=== PATIENT | female | born 1975 | race Caucasian/White ===

== ENCOUNTER → 2018-03-09 09:34 | Outpatient (CLI) | payer MEDICARE, BC, MEDICAID, SELFPAY ==
--- NOTE | 2018-03-09 | DI.CT.S_ITS ---
PROCEDURE: CT CHEST WO/W CON COMPARISON: None. INDICATIONS: chest pains with shortness of breath TECHNIQUE: Axial 5 mm thin sections through the chest were initially obtained without intravenous contrast and thereafter during the mixed arterial/venous venous phase of post contrast imaging. Coronal and sagittal reformatt imaging from source axial data was then performed. FINDINGS: Within the lung parenchyma there is no evidence of mass or pneumonia. No bronchitis or bronchiectasis is seen. Alveolitis is not suspected on the imaging series with deep inspiratory volume. There is alveolar and bronchiolar vascular crowding identified on the imaging showing reduced inspiratory volume. Mild lung base atelectasis is seen posteriorly, expected considering reduced inspiratory volume and large body habitus. No mediastinal or hilar adenopathy is seen. Within the visualized upper abdomen the solid and hollow organs appear normal. Incidental mode is made of a simple appearing exophytic right posterior renal cortical cyst, measuring up to 2.9 cm in maximal dimension. IMPRESSION: Source of current chest pain and shortness of breath is not seen. No underlying pneumonia or neoplasm is suspected. No chronic lung disease is found. Large body habitus and there is expected bronchovascular and alveolar crowding with reduced inspiratory volume. No evidence of pulmonary embolus or mediastinal/hilar adenopathy. Dictated by: Shashank Juarez M.D. on 03/09/2018 at 11:53 Approved by: Shashank Juarez M.D. on 03/09/2018 at 11:58
== END ==
PROVIDERS: PCP Family Medicine; Visit Provider Family Medicine
DX: R07.9 Chest pain, unspecified (principal); R06.02 Shortness of breath
CPT/HCPCS: 71270; Q9967

== ENCOUNTER → 2018-11-30 09:23 | Outpatient (CLI) | payer MEDICARE, BC, OTHER, MEDICAID, SELFPAY ==
--- NOTE | 2018-11-30 | DI.MRI.S_ITS ---
PROCEDURE: MR SHOULDER LT WO CON INDICATIONS: LEFT SHOULDER PAIN TECHNIQUE: Noncontrast oblique coronal T2 fast spin echo with fat saturation, oblique sagittal T1 spin echo and T2 fast spin echo with fat saturation, axial T1 spin echo and T2 fast spin echo with fat saturation through the shoulder. COMPARISON: None. FINDINGS: Image quality: Excellent. Rotator cuff: Tendinosis and moderate grade articular and bursal surface partial-thickness tear involving distal supraspinatus and infraspinatus is seen with focal full-thickness perforation involving anterior to mid fibers of the distal supraspinatus at its insertion on the humeral head and 8mm medial retraction of torn tendon fibers. Tendinosis and low-grade intrasubstance partial-thickness tear involving distal subscapularis is seen. Sagittal images demonstrate mild to moderate supraspinatus muscle atrophy. Bones and bursae: No bone marrow contusions or fractures. Mild acromioclavicular joint or glenohumeral joint osteoarthritic changes are seen. Trace amount of joint effusion or subacromial subdeltoid bursal fluid is seen. Capsule and soft tissues: In the absence of intra-articular contrast, the labrum and glenohumeral ligaments appear intact. Tendinosis and low to moderate grade partial-thickness tear involving proximal intra-articular portion of long head biceps tendon is seen. The rotator interval appears normal, without fibrosis. The coracohumeral ligament is normal in thickness. IMPRESSION: 1. Tendinosis and moderate grade articular and bursal surface partial-thickness tear involving distal supraspinatus and infraspinatus with a focal full-thickness perforation involving most anterior fibers of the distal supraspinatus at its insertion the humeral head and minimal 8mm retraction of torn tendon fibers medially. Tendinosis and low-grade partial-thickness involving distal subscapularis. Mild to moderate supraspinatus muscle atrophy. 2. No definite focal labral tear. Mild acromioclavicular joint and glenohumeral joint osteoarthritis. 3. Tendinosis and low-grade intrasubstance partial-thickness tear involving proximal intra-articular portion of long head biceps tendon. Dictated by: Cachorro Morrow M.D. on 11/30/2018 at 13:48 Approved by: Cachorro Morrow M.D. on 11/30/2018 at 13:56
== END ==
PROVIDERS: PCP Family Medicine; Visit Provider Family Medicine
DX: M75.102 Unspecified rotator cuff tear or rupture of left shoulder, not specified as traumatic (principal); M25.512 Pain in left shoulder
CPT/HCPCS: 73221

== ENCOUNTER → 2019-04-09 11:41 | Outpatient (CLI) | payer MEDICARE, BC, OTHER, MEDICAID, SELFPAY ==
--- NOTE | 2019-04-09 | DI.US.S_ITS ---
PROCEDURE: US PELVIC COMPLETE INDICATIONS: Abnormal uterine and vaginal bleeding, unspecified TECHNIQUE: Real-time scanning was performed of the pelvic organs, with image documentation. Additional endovaginal scanning was necessary due to incomplete visualization of the adnexal and endometrial structures by transabdominal scanning. COMPARISON: None. FINDINGS: Transabdominal scanning: Limited scanning through the kidneys shows no hydronephrosis. No pathologic free abdominal or pelvic fluid. Endovaginal scanning: Uterus: Uterus is normal in size at 7.9 x 3.8 x 4.0 cm. The endometrium measures 3.0 mm in combined thickness. Ovaries: 20 mm simple right ovarian cyst; otherwise the ovaries are normal bilaterally. IMPRESSION: No source for vaginal bleeding identified. Dictated by: Paul LOPEZ Interpreted: Deepti Greenberg MD on 04/09/2019 at 13:13 Approved by: Deepti Greenberg MD, PhD on 04/09/2019 at 13:57
== END ==
PROVIDERS: Family Provider Family Medicine; PCP Family Medicine; Visit Provider Family Medicine
DX: N93.9 Abnormal uterine and vaginal bleeding, unspecified (principal)
CPT/HCPCS: 76830; 76856

== ENCOUNTER → 2019-10-23 14:15 | Outpatient (CLI) | payer MEDICARE, BC, OTHER, MEDICAID, SELFPAY ==
--- NOTE | 2019-10-23 | DI.US.S_ITS ---
PROCEDURE: US THYROID INDICATIONS: THYROMEGALY ROUTINE SCREENING TECHNIQUE: Real-time scanning was performed of the thyroid gland, with image documentation. COMPARISON: None. FINDINGS: Right: Normal size and echotexture. Left: Normal size and echotexture. Isthmus: The isthmus is normal in size. IMPRESSION: Normal size and echotexture through the thyroid gland bilaterally. No sign of goiter. No abnormal thyroid enlargement is found. Dictated by: Shashank Juarez M.D. on 10/23/2019 at 15:40 Approved by: Shashank Juarez M.D. on 10/23/2019 at 15:41
--- NOTE | 2019-10-23 | DI.MG.S_ITS ---
BILATERAL DIGITAL SCREENING MAMMOGRAM 3D/2D WITH CAD: 10/23/2019 CLINICAL: Routine screening. Comparison is made to exam dated: 07/28/2017 [facility]. There are scattered fibroglandular elements in both breasts. Current study was also evaluated with a Computer Aided Detection (CAD) system. There is a focal asymmetry in the left breast at 1 o'clock posterior depth. No other significant masses, calcifications, or other findings are seen in either breast. IMPRESSION: INCOMPLETE: NEEDS ADDITIONAL IMAGING EVALUATION The focal asymmetry in the left breast may represent a lymph node and is indeterminate. Additional views with possible ultrasound are recommended. This exam was interpreted at Station ID: [id number]. NOTE: For mammograms, a report in lay terms will be sent to the patient. Approximately 15% of breast malignancies will not be visualized mammographically. In the management of a palpable breast mass, a negative mammogram must not discourage biopsy of a clinically suspicious lesion. Electronically Signed By: Yolanda Zuniga M.D. lk/:10/23/2019 15:42:05 letter sent: Additional Imaging Needed ACR BI-RADS Category 0: Incomplete [id number]
== END ==
PROVIDERS: Family Provider Family Medicine; PCP Family Medicine; Referring Provider Family Medicine; Visit Provider Family Medicine
DX: Z12.31 Encounter for screening mammogram for malignant neoplasm of breast (principal); E01.0 Iodine-deficiency related diffuse (endemic) goiter
CPT/HCPCS: 76536; 77063; 77067

== ENCOUNTER → 2020-02-20 14:22 | Outpatient (CLI) | payer MEDICARE, MEDICAID, SELFPAY ==
--- NOTE | 2020-02-20 | DI.US.S_ITS ---
LIMITED ULTRASOUND OF LEFT BREAST: 02/20/2020 CLINICAL: Patient returns today to evaluate a density in the left breast. Comparison is made to exams dated: 02/20/2020 mammogram, 10/23/2019 mammogram, and 07/28/2017 mammogram - [facility]. Color flow and real-time ultrasound of the left breast were performed. Rivero scale images of the real-time examination were reviewed. There is a benign 0.6 cm normal lymph node with a circumscribed margin in the left breast at 1 o'clock posterior depth. This normal lymph node displays fatty hilum. This correlates with mammography findings. IMPRESSION: BENIGN There is no sonographic evidence of malignancy. The 0.6 cm normal lymph node in the left breast is consistent with a lymph node and is benign. A 1 year screening mammogram is recommended. Exam findings were conveyed to the patient. This exam was interpreted at Station ID: [id number]. Electronically Signed By: Uday Petersen M.D. slc/:02/20/2020 16:42:50 letter sent: Normal Exam Ultrasound BI-RADS: 2 Benign
--- NOTE | 2020-02-20 | DI.MG.S_ITS ---
UNILATERAL LEFT DIGITAL DIAGNOSTIC MAMMOGRAM 3D/2D WITH ADDITIONAL VIEWS: 02/20/2020 CLINICAL: Additional evaluation requested from prior study. Comparison is made to exams dated: 10/23/2019 mammogram and 07/28/2017 mammogram - [facility]. There are scattered fibroglandular elements in left breast. There is a 0.6 cm focal asymmetry in the left breast at 1 o'clock posterior depth. No other significant masses or calcifications are seen in the breast. IMPRESSION: INCOMPLETE: NEEDS ADDITIONAL IMAGING EVALUATION The 0.6 cm focal asymmetry in the left breast resembles a lymph node and is indeterminate. A targeted ultrasound is recommended and will immediately follow. This exam was interpreted at Station ID: [id number]. NOTE: For mammograms, a report in lay terms will be sent to the patient. Approximately 15% of breast malignancies will not be visualized mammographically. In the management of a palpable breast mass, a negative mammogram must not discourage biopsy of a clinically suspicious lesion. Electronically Signed By: Uday Petersen M.D. slc/:02/20/2020 15:41:17 ACR BI-RADS Category 0: Incomplete [id number]
--- NOTE | 2020-02-20 | DI.RAD.S_ITS ---
PROCEDURE: XR CHEST 2V INDICATIONS: wheezing since Covid in August TECHNIQUE: 2 views of the chest were acquired. COMPARISON: None. FINDINGS: Surgical changes and devices: None. Lungs and pleura: Lungs are clear. No pleural effusions or pneumothorax. Mediastinum: Mediastinal contours are normal. Heart size is normal. Bones and chest wall: No suspicious bony abnormalities. Soft tissues appear unremarkable. IMPRESSION: No acute cardiopulmonary findings. Dictated by: Yolanda Zuniga M.D. on 02/20/2020 at 15:42 Approved by: Yolanda Zuniga M.D. on 02/20/2020 at 15:42
--- NOTE | 2020-02-20 14:28 | DI.RAD.S_ITS ---
PROCEDURE: XR LUMBAR SPINE MIN 4V INDICATIONS: LBP TECHNIQUE: 4 views of the lumbar spine were acquired. COMPARISON: None. FINDINGS: Bones: 5 nonrib-bearing vertebrae are present. There is normal bony alignment. No vertebral body compression fractures. No suspicious bony lesions. Mild joint space narrowing and sclerosis is present at L5-S1. Facet sclerosis is present from L4-S1. Soft tissues: Overlying bowel gas pattern is normal. No suspicious soft tissue calcifications. Oblique images: No pars defects. IMPRESSION: 1. Mild degenerative change. 2. No spondylolisthesis or spondylolysis. Dictated by: Yolanda Zuniga M.D. on 02/20/2020 at 16:18 Approved by: Yolanda Zuniga M.D. on 02/20/2020 at 16:19
== END ==
PROVIDERS: Family Provider Family Medicine; PCP Family Medicine; Referring Provider Family Medicine; Visit Provider Family Medicine
DX: R92.8 Other abnormal and inconclusive findings on diagnostic imaging of breast (principal); R06.2 Wheezing; M51.26 Other intervertebral disc displacement, lumbar region; M47.816 Spondylosis without myelopathy or radiculopathy, lumbar region
CPT/HCPCS: 71046; 72110; 76642; 77065; G0279

== ENCOUNTER → 2020-10-05 17:02 | Outpatient (CLI) | payer MEDICARE, OTHER, MEDICAID, SELFPAY | PROVIDERS: Family Provider Family Medicine; PCP Family Medicine; Visit Provider Family Medicine | DX: R39.15 Urgency of urination (principal) | CPT/HCPCS: 87086 ==

== ENCOUNTER → 2020-10-08 13:10 | Outpatient (CLI) | payer MEDICARE, MEDICAID, SELFPAY ==
[2020-10-11 04:07] LABS: Chlamydia trachomatis NAA Negative (Negative); Neisseria gonorrhoeae NAA Negative (Negative)
== END ==
PROVIDERS: Family Provider Family Medicine; PCP Family Medicine; Visit Provider Family Medicine
DX: B37.3 Candidiasis of vulva and vagina (principal); N39.41 Urge incontinence; G80.1 Spastic diplegic cerebral palsy; N39.0 Urinary tract infection, site not specified
CPT/HCPCS: 87070; 87205; 87210; 87491; 87591

== ENCOUNTER → 2021-01-28 13:55 | Outpatient (CLI) | payer MEDICARE, MEDICAID, SELFPAY ==
--- NOTE | 2021-01-28 | DI.RAD.S_ITS ---
PROCEDURE: XR LUMBAR SPINE 2-3V INDICATIONS: low back pain TECHNIQUE: 2 views of the lumbar spine were acquired. COMPARISON: [facility], , XR LUMBAR SPINE MIN 4V, 02/20/2020, 14:28. FINDINGS: Bones: 5 [id number] vertebrae are present. There is mild levocurvature of the lower lumbar spine. This may be due to patient positioning. No acute vertebral body compression fractures. No suspicious bony lesions. Multilevel lumbar spondylosis with degenerative endplate changes and endplate osteophyte formation. Moderate multilevel facet arthropathy most severe in the mid and lower lumbar spine. Stable mild disc space loss at L5-S1. Soft tissues: Overlying bowel gas pattern is normal. No suspicious soft tissue calcifications. IMPRESSION: Lumbar spine without acute osseous abnormalities. Stable appearance of multilevel lumbar spondylosis. Dictated by: Yony Moreno M.D. on 01/28/2021 at 15:55 Approved by: Yony Moreno M.D. on 01/28/2021 at 15:57
--- NOTE | 2021-01-28 | DI.RAD.S_ITS ---
PROCEDURE: XR HAND RT MIN 3V INDICATIONS: Arthritis of hand TECHNIQUE: Three views of the hand(s) acquired. COMPARISON: None. FINDINGS: Bones: No fractures or dislocations. Moderate subluxation of the 2nd PIP and DIP joints. 1st IP joint is held in extension. Slight flexion at the 3rd DIP joint. Carpal bones are normally aligned. No suspicious bony lesions. Soft tissues: Scattered soft tissue calcifications and swelling around the 2nd IP joints, and around the 3rd and 4th proximal phalanges. IMPRESSION: 1. Subluxation and soft tissue calcifications suggests connective tissue arthropathy, , rheumatoid arthropathy, less likely inflammatory arthropathy. Dictated by: Clemencia Simpson M.D. on 01/28/2021 at 16:42 Approved by: Clemencia Simpson M.D. on 01/28/2021 at 16:46
== END ==
PROVIDERS: Family Provider Family Medicine; PCP Family Medicine; Referring Provider Family Medicine; Visit Provider Family Medicine
DX: M54.5 Low back pain (principal); M13.849 Other specified arthritis, unspecified hand
CPT/HCPCS: 72100; 73130

== ENCOUNTER 2022-02-22 10:54 | Emergency (ER) | payer MEDICARE, MEDICAID, SELFPAY ==
[2022-02-22 10:58] VITALS: BP 117/74; PULSE 85; RESP 19; TEMP 36.6; O2SAT 100; BMI 26.4
--- NOTE | 2022-02-22 11:11 | DI.CT.S_ITS ---
PROCEDURE: CT HEAD/BRAIN WO CON INDICATIONS: fall/head injury TECHNIQUE: Noncontrast 4.5 mm thick angled axial sections acquired from the foramen magnum to the vertex, with coronal and sagittal reformats. For radiation dose reduction, the following was used: automated exposure control, adjustment of mA and/or kV according to patient size. COMPARISON: [facility], CT, CT CERVICAL SPINE WO CON, 02/22/2022, 11:20. FINDINGS: Image quality: Excellent. CSF spaces: Basal cisterns are patent. No extra-axial fluid collections. Ventricles are normal in size and shape. Brain: No midline shift. No intracranial masses or hemorrhage. Rivero-white matter interface is normal. Skull and face: There is a benign-appearing cystic lesion involving the outer table of the left posterior calvarium, as on series 3, image 24 and on series 4, image 31 that measures up to 11 mm. There is fat density seen within this lesion. The calvarium is otherwise unremarkable. No displaced calvarial fracture is seen. Sinuses: Visualized sinuses and mastoids are clear. IMPRESSION: No acute intracranial hemorrhage is seen. No acute intracranial process is seen. Benign appearing left posterior calvarial lesion noted. Dictated by: Jamel Adams M.D. on 02/22/2022 at 10:29 Approved by: Jamel Adams M.D. on 02/22/2022 at 10:32
--- NOTE | 2022-02-22 11:19 | DI.CT.S_ITS ---
PROCEDURE: CT CERVICAL SPINE WO CON INDICATIONS: fall/head injury TECHNIQUE: Noncontrast 3 mm thick sections acquired from the skull base to the T4 level. Sagittal and coronal reformats were then constructed. For radiation dose reduction, the following was used: automated exposure control, adjustment of mA and/or kV according to patient size. COMPARISON: None. FINDINGS: Image quality: Excellent. Bones: No fractures or dislocations. Visualized superior ribs are intact. Soft tissues: Prevertebral soft tissues are normal in thickness. No paravertebral hematomas. No apical pneumothoraces. IMPRESSION: No CT evidence of acute traumatic cervical spine injury.4 Dictated by: Adryan Logan M.D. on 02/22/2022 at 11:25 Approved by: Adryan Logan M.D. on 02/22/2022 at 11:26
--- NOTE | 2022-02-22 14:29 | ED.HEATRA ---
HPI - Head Injury <Colleen Avila PA-C - Last Filed: 02/22/22 14:36> General Chief complaint: Head Injury Stated complaint: GLF w/head contusion on Mon. Headaches, nausea Time Seen by Provider: 02/22/22 13:06 Source: patient Mode of arrival: Ambulatory History of Present Illness HPI Narrative: 46-year-old female with past medical history cerebral palsy, chronic continuous use of opioids, anxiety and depression, GERD, rheumatoid arthritis presents to the ED status post a head injury sustained 6 days prior to arrival. Patient stated that she suffered a mechanical fall when walking with her walker 6 days ago, hit her head. Patient denies loss of consciousness. Patient states that since then she is had a headache, nausea. Patient denies fever, chills, chest pain, shortness of breath, vomiting, dizziness, vision changes, syncope. Patient called her PCP today, who directed her to the ED to rule out intracranial bleeds. Related Data Home Medications Medication Instructions Recorded Confirmed albuterol sulfate 90 mcg/actuation inhalation 06/08/20 10/23/20 aerosol inhaler alprazolam 0.5 mg tablet mg PO BID PRN anxiety 06/08/20 10/23/20 fluticasone propionate 110 inhalation 06/08/20 10/23/20 mcg/actuation HFA aerosol inhaler calcipotriene 0.005 % topical cream 1 applic topical BID 10/14/20 10/23/20 meloxicam 15 mg tablet 15 mg PO DAILY 10/14/20 10/23/20 propranolol 10 mg tablet 10 mg PO BID 10/23/20 10/23/20 spironolactone 50 mg tablet 50 mg PO DAILY 10/23/20 10/23/20 tofacitinib 11 mg tablet,extended 11 mg PO DAILY 10/23/20 10/23/20 release 24 hr (Xeljanz XR) venlafaxine 150 mg 150 mg PO DAILY 10/23/20 10/23/20 capsule,extended release 24 hr Previous Rx's Medication Instructions Recorded hydromorphone 4 mg tablet 4 mg PO Q6H PRN Severe pain #112 10/23/20 tabs mirabegron 25 mg tablet,extended 25 mg PO DAILY #90 tabs 10/26/20 release 24 hr (Myrbetriq) Allergies Allergy/AdvReac Type Severity Reaction Status Date / Time Penicillins [PENICILLINS] Allergy Unknown Verified 10/08/20 12:07 Review of Systems <Colleen Avila PA-C - Last Filed: 02/22/22 14:36> Review of Systems ROS Unobtainable: All systems reviewed & are unremarkable except as noted in HPI and below Constitutional Constitutional: Denies chills, Denies fatigue, Denies fever(s), Denies frequent falls, Reports headache(s), Denies lethargy and Denies weakness Eyes Eyes: Denies change in vision, Denies eye discharge, Denies irritation and Denies loss of vision ENT Ears, Nose, Mouth, and Throat: Denies change in voice, Denies dizziness, Reports headache(s), Denies neck pain, Denies sore throat and Denies throat swelling Cardiovascular Cardiovascular: Denies chest pain, Denies irregular heart rhythm, Denies lightheadedness, Denies palpitations, Denies dyspnea, Denies dyspnea on exertion and Denies orthopnea Respiratory Respiratory: Denies cough, Denies dyspnea, Denies dyspnea on exertion and Denies wheezing Gastrointestinal Gastrointestinal: Denies abdominal pain, Denies change in bowel habits, Denies diarrhea, Reports nausea and Denies vomiting Genitourinary Genitourinary: Denies hematuria, Denies flank pain, Denies urinary incontinence and Denies urinary urgency Musculoskeletal Musculoskeletal: Denies back pain, Denies muscle weakness, Denies neck pain, Denies numbness and Denies tingling Integumentary/Breasts Skin/Breast: Denies pruritus, Denies erythema, Denies rash and Denies wounds Neurologic Neurologic: Denies behavioral changes, Denies confusion, Denies dizziness, Denies frequent falls, Reports headache(s), Denies loss of vision, Denies numbness, Denies tingling and Denies weakness Psychiatric Psychiatric: Denies anxiety, Denies behavioral changes, Denies confusion, Denies depression, Denies homicidal ideation and Denies suicidal ideation Endocrine Endocrine: Denies fatigue, Denies flushing and Denies palpitations Hematologic/Lymphatic Hematologic/Lymphatic: Denies easy bruising Allergic/Immunologic Allergic/Immunologic: Denies urticaria, Denies throat swelling and Denies wheezing Patient History <Colleen Avila PA-C - Last Filed: 02/22/22 14:36> Medical History Cerebral palsy Depression (~1979) Facet arthropathy, lumbar Herniated nucleus pulposus, lumbar History of developmental delay (~1974) Psoriasis (~1999) Rheumatoid arthritis (~1999) Spastic diplegia Family History Father Stroke Mother Bladder cancer Social History Smoking Status: Never smoker Smoking Status: Never smoker alcohol intake frequency: holidays/special occasions only Substance Use Type: marijuana Exam <Colleen Avila PA-C - Last Filed: 02/22/22 14:36> Narrative Exam Narrative: Const General:?cooperative, healthy appearing and comfortable HENMT Head:?normal to inspection Ears:?hearing grossly normal bilaterally Nose:?external nose normal Face and sinus:?normal facial exam and sinuses nontender Mouth:?oral mucosae normal Throat:?posterior oropharynx normal Eyes General:?appearance normal, both eyes and all related structures Neck Neck:?normal visual inspection and no lymphadenopathy noted Resp Effort & Inspection:?normal respiratory effort Auscultation:?clear to auscultation bilaterally Cardio Rate:?regular rate Rhythm:?regular rhythm Neuro General:?patient alert, patient awake and patient oriented x3; PERRLA; CN 1 through 12 intact bilaterally. Gait per baseline. Initial Vital Signs Initial Vital Signs: Vital Signs Temperature 97.8 F 02/22/22 10:58 Pulse Rate 85 02/22/22 10:58 Respiratory Rate 19 02/22/22 10:58 Blood Pressure 117/74 02/22/22 10:58 Pulse Oximetry 100 02/22/22 10:58 Oxygen Delivery Method 02/22/22 10:58 <Alysha Luke DO - Last Filed: 02/25/22 14:40> Initial Vital Signs Initial Vital Signs: Vital Signs Temperature 97.8 F 02/22/22 10:58 Pulse Rate 85 02/22/22 10:58 Respiratory Rate 19 02/22/22 10:58 Blood Pressure 117/74 02/22/22 10:58 Pulse Oximetry 100 02/22/22 10:58 Oxygen Delivery Method 02/22/22 10:58 Course <Colleen Avila PA-C - Last Filed: 02/22/22 14:36> Orders Ordered: ED Orders 02/22/22 11:11 CT head/brain wo con Stat 02/22/22 11:19 CT cervical spine wo con Stat Vital Signs Vital signs: Vital Signs - 8 hr 02/22/22 10:58 Temperature 97.8 F Pulse Rate 85 Respiratory Rate 19 Blood Pressure 117/74 Pulse Oximetry 100 Oxygen Delivery Method Room Air <Alysha Luke DO - Last Filed: 02/25/22 14:40> Orders Ordered: ED Orders 02/22/22 11:11 CT head/brain wo con Stat 02/22/22 11:19 CT cervical spine wo con Stat Vital Signs Vital signs: Vital Signs - 8 hr 02/22/22 10:58 Temperature 97.8 F Pulse Rate 85 Respiratory Rate 19 Blood Pressure 117/74 Pulse Oximetry 100 Oxygen Delivery Method Room Air MDM - Head Injury <Colleen Avila PA-C - Last Filed: 02/22/22 14:36> Imaging Data CT scan - head: Radiologist's Impression: PROCEDURE:? CT HEAD/BRAIN WO CON ? INDICATIONS:? fall/head injury ? TECHNIQUE:? Noncontrast 4.5 mm thick angled axial sections acquired from the foramen magnum to the vertex, with coronal and sagittal reformats.? For radiation dose reduction, the following was used:? automated exposure control, adjustment of mA and/or kV according to patient size.? ? COMPARISON:? [facility], CT, CT CERVICAL SPINE WO CON, 02/22/2022, 11:20. ? FINDINGS:? Image quality:? Excellent.? ? CSF spaces:? Basal cisterns are patent.? No extra-axial fluid collections.? Ventricles are normal in size and shape.? ? Brain:? No midline shift.? No intracranial masses or hemorrhage.? Rivero-white matter interface is normal.? ? Skull and face:? There is a benign-appearing cystic lesion involving the outer table of the left posterior calvarium, as on series 3, image 24 and on series 4, image 31 that measures up to 11 mm.? There is fat density seen within this lesion.? The calvarium is otherwise unremarkable.? No displaced calvarial fracture is seen. ? Sinuses:? Visualized sinuses and mastoids are clear.? IMPRESSION:? No acute intracranial hemorrhage is seen.? ? No acute intracranial process is seen.? ? Benign appearing left posterior calvarial lesion noted.? ? Dictated by: Jamel Adams M.D. on 02/22/2022 at 10:29 ? ? Approved by: Jamel Adams M.D. on 02/22/2022 at 10:32 ? CT - cervical spine: Radiologist's Impression: PROCEDURE:? CT CERVICAL SPINE WO CON ? INDICATIONS:? fall/head injury ? TECHNIQUE:? Noncontrast 3 mm thick sections acquired from the skull base to the T4 level.? Sagittal and coronal reformats were then constructed.? For radiation dose reduction, the following was used:? automated exposure control, adjustment of mA and/or kV according to patient size.? ? COMPARISON:? None. ? FINDINGS:? Image quality:? Excellent.? ? Bones:? No fractures or dislocations.? Visualized superior ribs are intact.? ? Soft tissues:? Prevertebral soft tissues are normal in thickness.? No paravertebral hematomas.? No apical pneumothoraces.? ? ? IMPRESSION:? No CT evidence of acute traumatic cervical spine injury.4 ? Dictated by: Adryan Logan M.D. on 02/22/2022 at 11:25 ? ? Approved by: Adryan Logan M.D. on 02/22/2022 at 11:26 ? Extremity x-ray #1: Radiologist's Impression: PROCEDURE:? XR MANDIBLE MIN 4V ? INDICATIONS:? JAW PAIN ? TECHNIQUE:? 4 views of the mandible were acquired.? ? COMPARISON:? None. ? FINDINGS:? ? Bones:? No fractures or dislocations.? No suspicious bony lesions.? ? Soft tissues:? Visualized sinuses appear clear.? No suspicious soft tissue densities.? ? IMPRESSION:? No definite radiographic abnormality. If pain persists with conservative management, consider cross sectional imaging such as CT or MRI for further assessment. ? ? Dictated by: Paul LOPEZ Interpreted: Charity Root MD on 02/22/2022 at 11:53 ? Transcribed by: NANCY on 02/22/2022 at 11:53? ? Approved by: Charity Root M.D. on 02/22/2022 at 12:04 ? Extremity x-ray #2: Radiologist's Impression: PROCEDURE:? XR KNEE RT 3V ? INDICATIONS:? TENDONITIS ? TECHNIQUE:? 3 views of the knee were acquired.? ? COMPARISON:? [facility], CR, KNEE 3V RIGHT, 08/02/2017, 16:18. ? FINDINGS:? ? Bones:? No fractures or dislocations.? No suspicious bony lesions.? Mild tricompartmental knee joint space narrowing with tricompartmental periarticular osteophyte formation. ? Soft tissues:? Small joint effusion.? No suspicious soft tissue calcifications.? ? IMPRESSION:? Mild tricompartmental knee joint degeneration. ? ? Dictated by: Paul Beckett RRA Interpreted: Charity Root MD on 02/22/2022 at 11:53 ? Transcribed by: NANCY on 02/22/2022 at 11:54? ? Approved by: Charity Root M.D. on 02/22/2022 at 12:04 ? MDM Narrative Medical decision making narrative: 46-year-old female with past medical history cerebral palsy, chronic continuous use of opioids, anxiety and depression, GERD, rheumatoid arthritis presents to the ED status post a head injury sustained 6 days prior to arrival. Concern for intracranial bleed versus fracture/dislocation versus concussion versus other. CT head, CT C-spine obtained with no acute findings. Patient's symptoms likely due to a concussion. Counseled patient on concussion symptoms. ED return precautions were discussed with patient. Patient verbalized understanding. Patient agrees to follow-up with her PCP. Discharge Plan Departure Patient Disposition: Home Clinical Impression: Concussion Instructions: Concussion Activity Restrictions/Additional Instructions: You were evaluated in the ED today for a head injury. Your CT head and CT C-spine were normal. Your symptoms are likely due to a concussion, which is a brain bruise. It is common after a concussion to have headaches, nausea, occasional vomiting, sleepiness, fatigue, depression, agitation for several days after the injury. Symptoms can last between days 2 months depending on the person. It is important that you follow-up with your PCP from her on to monitor your symptoms to resolution. Return to the ED if you have worsening symptoms, you are uncontrollably vomiting. Prescriptions: No Action Myrbetriq 25 mg tablet extended release 24 hr 25 mg PO DAILY Qty: 90 1RF Rx Instructions: Patient should discontinue Detrol if taking Mirabegron meloxicam 15 mg tablet 15 mg PO DAILY calcipotriene 0.005 % cream 1 applic topical BID Rx Instructions: rub in gently and completely hydromorphone 4 mg tablet 4 mg PO Q6H PRN (Reason: Severe pain) Qty: 112 0RF Rx Instructions: Tapering. Must last at least 28 days. spironolactone 50 mg tablet 50 mg PO DAILY propranolol 10 mg tablet 10 mg PO BID venlafaxine 150 mg capsule,extended release 24hr 150 mg PO DAILY Xeljanz XR 11 mg tablet extended release 24 hr 11 mg PO DAILY albuterol sulfate 90 mcg/actuation HFA aerosol inhaler inhalation Flovent HFA 110 mcg/actuation HFA aerosol inhaler inhalation alprazolam 0.5 mg tablet PO BID PRN (Reason: anxiety) Referrals: Oliver Rodriguez MD [Primary Care Provider] - Visit Report Forms: Patient Portal/API <Alysha Luke DO - Last Filed: 02/25/22 14:40> Cosign ED Attending Emiature Attestation: I was immediately available in the department for consultation. Documentation has been reviewed.
== END 2022-02-22 16:07 | disposition home or self-care (01) ==
PROVIDERS: Emergency Provider Student in an Organized Health Care Education/Training Program; Family Provider Family Medicine; PCP Family Medicine
DX: S06.0X0A Concussion without loss of consciousness, initial encounter (principal); W18.30XA Fall on same level, unspecified, initial encounter; M76.51 Patellar tendinitis, right knee; M05.9 Rheumatoid arthritis with rheumatoid factor, unspecified; R68.84 Jaw pain; M17.11 Unilateral primary osteoarthritis, right knee
CPT/HCPCS: 70110; 70450; 72125; 73562; 99283

== ENCOUNTER → 2022-02-22 11:08 | Outpatient (CLI) | payer MEDICARE, MEDICAID, SELFPAY ==
--- NOTE | 2022-02-22 11:12 | DI.RAD.S_ITS ---
PROCEDURE: XR MANDIBLE MIN 4V INDICATIONS: JAW PAIN TECHNIQUE: 4 views of the mandible were acquired. COMPARISON: None. FINDINGS: Bones: No fractures or dislocations. No suspicious bony lesions. Soft tissues: Visualized sinuses appear clear. No suspicious soft tissue densities. IMPRESSION: No definite radiographic abnormality. If pain persists with conservative management, consider cross sectional imaging such as CT or MRI for further assessment. Dictated by: Paul LOPEZ Interpreted: Charity Root MD on 02/22/2022 at 11:53 Transcribed by: NANCY on 02/22/2022 at 11:53 Approved by: Charity Root M.D. on 02/22/2022 at 12:04
--- NOTE | 2022-02-22 11:12 | DI.RAD.S_ITS ---
PROCEDURE: XR KNEE RT 3V INDICATIONS: TENDONITIS TECHNIQUE: 3 views of the knee were acquired. COMPARISON: [facility], , KNEE 3V RIGHT, 08/02/2017, 16:18. FINDINGS: Bones: No fractures or dislocations. No suspicious bony lesions. Mild tricompartmental knee joint space narrowing with tricompartmental periarticular osteophyte formation. Soft tissues: Small joint effusion. No suspicious soft tissue calcifications. IMPRESSION: Mild tricompartmental knee joint degeneration. Dictated by: Paul LOPEZ Interpreted: Charity Root MD on 02/22/2022 at 11:53 Transcribed by: NANCY on 02/22/2022 at 11:54 Approved by: Charity Root M.D. on 02/22/2022 at 12:04
== END ==
PROVIDERS: Family Provider Family Medicine; PCP Family Medicine; Referring Provider Family Medicine; Visit Provider Family Medicine
DX: M17.11 Unilateral primary osteoarthritis, right knee (principal); M76.51 Patellar tendinitis, right knee; M05.9 Rheumatoid arthritis with rheumatoid factor, unspecified; R68.84 Jaw pain
CPT/HCPCS: 70110; 73562

== ENCOUNTER → 2022-06-27 13:00 | Outpatient (CLI) | payer MEDICARE, MEDICAID, SELFPAY ==
--- NOTE | 2022-06-27 | DI.MG.S_ITS ---
BILATERAL DIGITAL SCREENING MAMMOGRAM 3D/2D WITH CAD: 06/27/2022 CLINICAL: Routine screening. Comparison is made to exams dated: 10/23/2019 mammogram, 07/28/2017 mammogram, and 02/20/2020 mammogram - [facility]. There are scattered areas of fibroglandular density in both breasts (category b / 25%-50% glandular tissue). Current study was also evaluated with a Computer Aided Detection (CAD) system. There is an asymmetry in the left breast middle depth superior region seen on the mediolateral oblique view only. This is more prominent. Benign calcifications in both breasts. No other significant masses, calcifications, or other findings are seen in either breast. IMPRESSION: INCOMPLETE: NEEDS ADDITIONAL IMAGING EVALUATION The asymmetry in the left breast is indeterminate. Additional views with possible ultrasound are recommended. Based on the Tyrer Cuzick model (a risk assessment model) the patient's lifetime risk is 7.2% and her 10 year risk is 1.4%. According to the ACR, ACS, and NCCN guidelines, an annual breast MRI exam along with mammogram is recommended if the patient's lifetime risk is 20% or greater. This exam was interpreted at Station ID: [id number]. NOTE: For mammograms, a report in lay terms will be sent to the patient. Approximately 15% of breast malignancies will not be visualized mammographically. In the management of a palpable breast mass, a negative mammogram must not discourage biopsy of a clinically suspicious lesion. Electronically Signed By: Uday Petersen M.D. [facility] [place]/:06/27/2022 13:43:21 letter sent: Additional Imaging Needed ACR BI-RADS Category 0: Incomplete [id number]
== END ==
PROVIDERS: Family Provider Family Medicine; PCP Family Medicine; Referring Provider Family Medicine; Visit Provider Family Medicine
DX: Z12.31 Encounter for screening mammogram for malignant neoplasm of breast (principal)
CPT/HCPCS: 77063; 77067

== ENCOUNTER → 2022-06-27 13:17 | Outpatient (CLI) | payer MEDICARE, MEDICAID, SELFPAY ==
--- NOTE | 2022-06-27 13:27 | DI.MRI.S_ITS ---
PROCEDURE: MR LUMBAR SPINE WO CON INDICATIONS: Radiculopathy, lumbosacral region TECHNIQUE: Noncontrast sagittal T1 spin echo and T2 fast echo, sagittal STIR, and T2 fast spin echo through the lumbar spine. In cases with scoliosis, additional coronal T2 fast spin echo may be performed. COMPARISON: [facility] ([place]), CR, XR LUMBAR SPINE 2-3V, 04/04/2022, 14:06. FINDINGS: Image quality: Excellent. Alignment and Curvature: Trace anterolisthesis of L4 on L5. Bone Marrow: Marrow is of normal overall signal. There is increased T1-T2 signal at L4 suspicious for hemangioma. Similar appearance is also noted at T12. No acute vertebral body compression fractures. Spinal Cord: Conus medullaris terminates at the L1 level. Visualized cord demonstrates normal signal and size. Paraspinous Soft Tissues: No paravertebral masses. Simple right renal cyst is present. Discs: Mild desiccation is present L4-5. L1-L2: No disc bulge, spinal stenosis or foraminal narrowing. L2-L3: Minimal disc bulge without spinal stenosis. Minimal left foraminal narrowing. Minimal epidural lipomatosis. L3-L4: Minimal disc bulge without spinal stenosis. Minimal left foraminal narrowing. Mild facet hypertrophy. L4-L5: Mild disc bulge with large superimposed posterior central protrusion causing severe spinal stenosis and canal compression. Dysi-gy-vbnjcpsy left and minimal right foraminal narrowing with facet and ligamentum flavum hypertrophy. L5-S1: Mild disc bulge without spinal stenosis. Moderate bilateral foraminal narrowing with facet and ligamentum flavum hypertrophy. IMPRESSION: Disc bulge with large superimposed protrusion at L4-5 causing severe spinal stenosis and canal compression. Multilevel foraminal narrowing most severe at L5-S1 secondary to facet arthropathy. Dictated by: Charity Root M.D. on 06/27/2022 at 20:41 Approved by: Charity Root M.D. on 06/27/2022 at 21:02
== END ==
PROVIDERS: Family Provider Family Medicine; PCP Family Medicine; Referring Provider Family Medicine; Visit Provider Family Medicine
DX: M51.16 Intervertebral disc disorders with radiculopathy, lumbar region (principal); M51.17 Intervertebral disc disorders with radiculopathy, lumbosacral region; M47.26 Other spondylosis with radiculopathy, lumbar region; M47.27 Other spondylosis with radiculopathy, lumbosacral region; M48.07 Spinal stenosis, lumbosacral region; M48.061 Spinal stenosis, lumbar region without neurogenic claudication
CPT/HCPCS: 72148

== ENCOUNTER → 2022-08-16 11:57 | Outpatient (CLI) | payer MEDICARE, MEDICAID, SELFPAY ==
--- NOTE | 2022-08-16 | DI.MG.S_ITS ---
UNILATERAL LEFT DIGITAL DIAGNOSTIC MAMMOGRAM 3D/2D WITH ADDITIONAL VIEWS: 08/16/2022 CLINICAL: Additional evaluation requested from prior study. Comparison is made to exams dated: 06/27/2022 mammogram, 02/20/2020 mammogram, 10/23/2019 mammogram, and 07/28/2017 mammogram - [facility]. There are scattered areas of fibroglandular density in the left breast (category b / 25%-50% glandular tissue). The asymmetry in the left breast middle depth superior region seen on the mediolateral oblique view only is not seen in additional views. No other significant masses or calcifications are seen in the breast. IMPRESSION: BENIGN The left breast asymmetry seen on the screening mammogram likely respresents superimposed fibroglandular tissue and is benign. There is no mammographic evidence of malignancy. Return to annual mammogram screening schedule is recommended. Based on the Tyrer Cuzick model (a risk assessment model) the patient's lifetime risk is 7.2% and her 10 year risk is 1.4%. According to the ACR, ACS, and NCCN guidelines, an annual breast MRI exam along with mammogram is recommended if the patient's lifetime risk is 20% or greater. This exam was interpreted at Station ID: [id number]. NOTE: For mammograms, a report in lay terms will be sent to the patient. Approximately 15% of breast malignancies will not be visualized mammographically. In the management of a palpable breast mass, a negative mammogram must not discourage biopsy of a clinically suspicious lesion. Electronically Signed By: Yolanda Zuniga M.D. lk/:08/16/2022 12:28:03 letter sent: Normal Exam ACR BI-RADS Category 2: Benign Finding(s) 3342F
== END ==
PROVIDERS: Family Provider Family Medicine; PCP Family Medicine; Referring Provider Family Medicine; Visit Provider Family Medicine
DX: R92.8 Other abnormal and inconclusive findings on diagnostic imaging of breast (principal)
CPT/HCPCS: 77065; G0279

== ENCOUNTER → 2022-10-18 15:47 | Outpatient (CLI) | payer MEDICARE, MEDICAID, SELFPAY | PROVIDERS: Family Provider Family Medicine; PCP Family Medicine; Visit Provider Nurse Practitioner Adult Health | DX: N89.8 Other specified noninflammatory disorders of vagina (principal) | CPT/HCPCS: 87798; 87801 ==

== ENCOUNTER → 2022-10-19 09:09 | Outpatient (CLI) | payer MEDICARE, MEDICAID, SELFPAY | PROVIDERS: Family Provider Family Medicine; PCP Family Medicine; Visit Provider Nurse Practitioner Adult Health | DX: N39.41 Urge incontinence (principal) | CPT/HCPCS: 87086 ==

== ENCOUNTER → 2022-12-27 09:15 | Outpatient (CLI) | payer MEDICARE, MEDICAID, SELFPAY ==
--- NOTE | 2022-12-27 | DI.MRI.S_ITS ---
PROCEDURE: MR SHOULDER LT WO CON INDICATIONS: LEFT SHOULDER PAIN TECHNIQUE: Noncontrast oblique coronal T2 fast spin echo with fat saturation, oblique sagittal T1 spin echo and T2 fast spin echo with fat saturation, axial T1 spin echo and T2 fast spin echo with fat saturation through the shoulder. COMPARISON: [facility], MR, MR SHOULDER LT WO CON, 11/30/2018, 9:57. FINDINGS: Image quality: Excellent. Rotator cuff: There is full-thickness tear of the distal supraspinatus tendon at the humeral attachment. There is moderate infraspinatus and subscapularis tendinosis without high-grade tendon tear. Sagittal images demonstrate no muscle atrophy. Bones and bursae: No bone marrow contusions or fractures. Moderate acromioclavicular and glenohumeral joint degeneration. The acromion demonstrates conventional anatomy, without an os acromiale. No pathologic subacromial-subdeltoid or subcoracoid bursal fluid is present. Capsule and soft tissues: There is degenerative fraying of the superior, anterior inferior labrum. There is moderate tendinosis of the long head of the biceps tendon without tendon rupture or dislocation. The rotator interval appears normal, without fibrosis. The coracohumeral ligament is normal in thickness. IMPRESSION: 1. Full-thickness tear of the distal supraspinatus tendon. 2. Moderate infraspinatus and subscapularis tendinosis without high-grade tendon tear. 3. Moderate tendinosis of the long head of the biceps tendon. 4. Moderate acromioclavicular and glenohumeral arthrosis. 4. Degenerative labral fraying. Dictated by: Jorge Her M.D. on 12/27/2022 at 11:38 Approved by: Jorge Her M.D. on 12/27/2022 at 11:51
--- NOTE | 2022-12-27 09:16 | DI.US.S_ITS ---
PROCEDURE: US PELVIC COMPLETE INDICATIONS: s/p endometrial ablation, new onset vaginal bleeding, assess TECHNIQUE: Real-time scanning was performed of the pelvic organs, with image documentation. Additional endovaginal scanning was necessary due to incomplete visualization of the adnexal and endometrial structures by transabdominal scanning. COMPARISON: [facility], , US PELVIC COMPLETE, 04/09/2019, 12:01. FINDINGS: Uterus: Endometrium is not well seen measuring about 4 mm in thickness. Uterus measures 8 x 3.5 x 4.7 cm, anteverted positioning. 1.3 x 1.5 x 1.0 cm region in the cervix, possibly a cystic cluster with calcifications, probably stable from prior imaging. Attention on follow-up. Ovaries: Right ovary is not seen. Enlarged left ovary measuring 57 cc. Multiloculated cystic region measures 5.2 x 4.5 x 4.7 cm. Color and spectral flows are seen. Other: No pathologic free abdominal or pelvic fluid. IMPRESSION: Endometrial appears somewhat ill-defined, measuring a thickness of about 4 mm. Multiloculated cystic region of the left ovary, measuring up to 5.2 x 4.7 cm. Consider further evaluation with MRI versus short interval follow-up ultrasound. Dictated by: Nader Taylor M.D. on 12/27/2022 at 13:15 Approved by: Nader Taylor M.D. on 12/27/2022 at 13:22
== END ==
PROVIDERS: Family Provider Family Medicine; PCP Family Medicine; Referring Provider Family Medicine; Visit Provider Family Medicine
DX: D39.12 Neoplasm of uncertain behavior of left ovary (principal); N92.6 Irregular menstruation, unspecified; M75.122 Complete rotator cuff tear or rupture of left shoulder, not specified as traumatic; M19.012 Primary osteoarthritis, left shoulder; M67.814 Other specified disorders of tendon, left shoulder; M54.2 Cervicalgia
CPT/HCPCS: 73221; 76830; 76856

== ENCOUNTER → 2022-12-27 09:18 | Outpatient (CLI) | payer MEDICARE, MEDICAID, SELFPAY ==
--- NOTE | 2022-12-27 | DI.MRI.S_ITS ---
PROCEDURE: MR CERVICAL SPINE WO CON INDICATIONS: Cervical disc disorder with radiculopathy, unspecified cervi TECHNIQUE: Noncontrast sagittal T1 spin echo and T2 fast spin echo, sagittal STIR, foraminal oblique sagittal T2 fast spin echo, and axial gradient echo or T2 fast spin echo through the cervical spine. COMPARISON: [facility], CT, CT CERVICAL SPINE WO CON, 02/22/2022, 11:20. [facility] ([place]), CR, XR CERVICAL SPINE 2V OR 3V, 11/03/2022, 13:57. FINDINGS: Image quality: This examination is limited by involuntary motion artifact. Alignment and Curvature: There is normal bony alignment. Bone Marrow: Marrow demonstrates normal overall signal. Spinal Cord: Visualized spinal cord has normal size and signal. No cerebellar tonsillar herniation. Paraspinous Soft Tissues: No paravertebral masses. Prevertebral soft tissues are normal in thickness. Focal degenerative change is seen involving the C1-C2 interface anteriorly. Moderate soft tissue pannus can be seen posterior to the dens at this level. C2-C3: No significant abnormality is seen. C3-C4: The disc height is well-preserved. Loss of disc signal is seen at this level. A mild degree of generalized disc osteophyte complex is seen. There is moderate right-sided and nkzh-fe-uphbwriw left-sided facet hypertrophy. There is moderate right-sided and hrvh-bj-yqotrzri left-sided neural foraminal narrowing. No central canal narrowing is seen. C4-C5: The disc height is well-preserved. Loss of disc signal is seen at this level. A mild degree of generalized disc osteophyte complex is seen. Moderate facet joint hypertrophy is seen. There is moderate left-sided and mild right-sided neural foraminal narrowing. No significant central canal narrowing is seen. C5-C6: The disc height is well-preserved. Loss of disc signal is seen at this level. A mild degree of generalized disc osteophyte complex is seen. Moderate facet joint hypertrophy is seen. There is at least moderate right-sided and bvep-kb-olugtqmq left-sided neural foraminal narrowing. No significant central canal narrowing is seen. C6-C7: The disc height is well-preserved. Loss of disc signal is seen at this level. A mild degree of generalized disc osteophyte complex is seen. Mild facet joint hypertrophy is seen. No significant neural foraminal or central canal narrowing can be seen. C7-T1: No significant abnormality is seen. IMPRESSION: Focal degenerative change can be seen involving the C1-C2 interface anteriorly. Mild soft tissue pannus can be seen posterior to the dens. Given the CT appearance, please consider remote trauma versus developmental anomaly. Differential diagnosis also includes rheumatoid arthritis. Dictated by: Jamel Adams M.D. on 12/27/2022 at 18:41 Approved by: Jamel Adams M.D. on 12/27/2022 at 18:46
== END ==
PROVIDERS: Family Provider Family Medicine; PCP Family Medicine; Referring Provider Family Medicine; Visit Provider Family Medicine
DX: M47.22 Other spondylosis with radiculopathy, cervical region; M75.122 Complete rotator cuff tear or rupture of left shoulder, not specified as traumatic; M19.012 Primary osteoarthritis, left shoulder; M67.814 Other specified disorders of tendon, left shoulder; M54.2 Cervicalgia; D39.12 Neoplasm of uncertain behavior of left ovary; N92.6 Irregular menstruation, unspecified
CPT/HCPCS: 72141; 73221; 76830; 76856

== ENCOUNTER → 2023-01-24 10:33 | Outpatient (CLI) | payer MEDICARE, MEDICAID, SELFPAY ==
--- NOTE | 2023-01-24 | DI.MRI.S_ITS ---
PROCEDURE: MR PELVIS WO/W CON INDICATIONS: Other intra-abdominal and pelvic swelling, mass and lump TECHNIQUE: Coronal HASTE, sagittal breath-hold T2 FSE; axial T1 FSE with and without fat saturation through the pelvis. Optional long- and short-axis uterine nonbreath-hold T2 FSE through the uterus. Sagittal or axial dynamic VIBE during administration of contrast. Post-contrast axial or coronal VIBE/2-D FLASH with fat saturation from the iliac crests to the symphysis. Optional diffusion weighted imaging and ADC may be performed. COMPARISON: [facility], US, US PELVIC COMPLETE, 12/27/2022, 9:24. FINDINGS: Image quality: Good. Uterus: Uterus is anteverted and normal in size. Uterus measures 7.1 cm. Endometrium is normal in thickness measuring 0.3 cm. Junctional zone is normal in thickness at 12 mm or less. Multiple nabothian cysts. Adnexa: Several small left ovarian follicles. A larger follicle or simple cyst measuring 1.5 cm, (4/20). No suspicious enhancement. No restricted diffusion. No intrinsic T1 hyperintense signal. Right ovary is not enlarged. Small right ovarian follicle. Urinary system: Bladder wall is normal in thickness. Distal ureters are non distended. Urethra appears normal in morphology. Nodes and vessels: No pelvic or inguinal adenopathy by size criteria. Iliac vessels are normal in size. Bowel and peritoneum: No pathologic free pelvic fluid. Inferior colon and small bowel loops are normal in caliber. Soft tissues: Probable small fat containing left inguinal hernia. No findings of pelvic floor incompetence in the absence of provocation. Bones: Marrow demonstrates normal overall signal. IMPRESSION: No significant ovarian cyst. No mass or suspicious enhancement. No uterine adenomyosis demonstrated. No free fluid. Dictated by: Uday Petersen M.D. on 01/24/2023 at 17:26 Approved by: Uday Petersen M.D. on 01/24/2023 at 17:34
== END ==
PROVIDERS: Family Provider Family Medicine; PCP Family Medicine; Referring Provider Family Medicine; Visit Provider Family Medicine
DX: R19.09 Other intra-abdominal and pelvic swelling, mass and lump (principal)
CPT/HCPCS: 72197; A9579

== ENCOUNTER → 2023-08-14 11:14 | Outpatient (CLI) | payer MEDICARE, MEDICAID, SELFPAY ==
[2023-08-15 14:38] LABS: Candida species Negative (Negative); Gardnerella vaginalis Negative (Negative); Trichomoas vaginalis Negative (Negative)
== END ==
PROVIDERS: Family Provider Family Medicine; PCP Family Medicine; Visit Provider Obstetrics & Gynecology
DX: N89.8 Other specified noninflammatory disorders of vagina (principal)
CPT/HCPCS: 87480; 87510; 87660

== ENCOUNTER → 2023-08-14 11:48 | Outpatient (CLI) | payer MEDICARE, MEDICAID, SELFPAY ==
--- NOTE | 2023-08-14 | DI.RAD.S_ITS ---
PROCEDURE: XR FOOT RT MIN 3V INDICATIONS: RT FT PAIN TECHNIQUE: 3 views of the foot were acquired. COMPARISON: [facility] ([place]), CR, XR FOOT LT MIN 3V, 09/09/2021, 9:21. [facility] ([place]), CR, XR FOOT RT MIN 3V, 04/30/2021, 10:08. FINDINGS: Bones: Toes are again curled and difficult to evaluate. No fracture or dislocation can be identified. No suspicious osseous lesions seen. Plantar calcaneal spur again noted. Soft tissues: No radiographically evident soft tissue swelling noted. Patient's radiodense patchy sock somewhat limits evaluation of the soft tissues. IMPRESSION: Somewhat limited evaluation of the toes due to curled positioning No acute bony abnormality. Dictated by: Butch Parham M.D. on 08/14/2023 at 13:15 Approved by: Butch Parham M.D. on 08/14/2023 at 13:19
--- NOTE | 2023-08-14 | DI.RAD.S_ITS ---
PROCEDURE: XR CERVICAL SPINE 4V OR 5V INDICATIONS: NECK PAIN TECHNIQUE: 5 views of the cervical spine were acquired. COMPARISON: [facility] ([place]), CR, XR CERVICAL SPINE 2V OR 3V, 11/03/2022, 13:57. FINDINGS: Bones: No fractures or dislocations to the T1 level. No suspicious bony lesions. There is normal range of motion between flexion and extension, with preserved normal bony alignment. Soft tissues: Prevertebral soft tissues are normal in thickness. IMPRESSION: Unremarkable cervical spine radiographs without evidence of instability Approved by: Xavier Benitez M.D. on 08/14/2023 at 19:04
== END ==
PROVIDERS: Family Provider Family Medicine; PCP Family Medicine; Referring Provider Specialist/Technologist Athletic Trainer; Visit Provider Specialist/Technologist Athletic Trainer
DX: M54.2 Cervicalgia (principal); R20.2 Paresthesia of skin; M79.671 Pain in right foot; M77.31 Calcaneal spur, right foot; N89.8 Other specified noninflammatory disorders of vagina
CPT/HCPCS: 72050; 73630; 87480; 87510; 87660

== ENCOUNTER → 2023-09-08 11:15 | Outpatient (CLI) | payer MEDICARE, MEDICAID, SELFPAY ==
--- NOTE | 2023-09-08 11:18 | DI.CT.S_ITS ---
PROCEDURE: CT CERVIAL SPINE W CON INDICATIONS: SEROPOSITIVE RA/Ankylosing spondylitis of c spine TECHNIQUE: After the administration of intravenous iodinated contrast, 3 mm thick sections acquired through the levels of interest. Sagittal and coronal reformats were then constructed. For radiation dose reduction, the following was used: automated exposure control. COMPARISON: [facility], CR, XR CERVICAL SPINE 4V OR 5V, 08/14/2023, 12:04. [facility], MR, MR CERVICAL SPINE WO CON, 12/27/2022, 10:05. FINDINGS: Image quality: This examination is somewhat limited by quantum mottle artifact. Bones: Focal degenerative change is seen involving the C1-C2 interface anteriorly. Milder degenerative changes are seen elsewhere. The disc heights are relatively well preserved. Mild endplate osteophytes can be seen anteriorly at C4-C5, C5-C6, and C6-C7. Mild scattered degenerative changes can be seen involving the facets. Soft tissues: There is a mild degree of soft tissue pannus seen posterior to the dens. No significant surrounding soft tissue abnormality can be seen. The visualized lungs appear clear. No abnormal enhancement can be seen. IMPRESSION: A mild degree of soft tissue pannus can be seen posterior to the dens, which is consistent with the given clinical history of rheumatoid arthritis. Focal degenerative change can be seen involving the C1-C2 interface anteriorly, with milder degenerative changes seen elsewhere. Dictated by: Jamel Adams M.D. on 09/08/2023 at 11:53 Approved by: Jamel Adams M.D. on 09/08/2023 at 11:55
== END ==
PROVIDERS: Family Provider Family Medicine; PCP Family Medicine; Referring Provider Specialist/Technologist Athletic Trainer; Visit Provider Specialist/Technologist Athletic Trainer
DX: M05.9 Rheumatoid arthritis with rheumatoid factor, unspecified; M54.2 Cervicalgia; M47.812 Spondylosis without myelopathy or radiculopathy, cervical region
CPT/HCPCS: 72126; Q9967

== ENCOUNTER → 2023-09-27 11:33 | Outpatient (CLI) | payer MEDICARE, MEDICAID, SELFPAY ==
[2023-09-28 18:16] LABS: Candida species Negative (Negative); Gardnerella vaginalis Negative (Negative); Trichomoas vaginalis Negative (Negative)
== END ==
PROVIDERS: Family Provider Family Medicine; PCP Family Medicine; Visit Provider Obstetrics & Gynecology
DX: N89.8 Other specified noninflammatory disorders of vagina (principal); B37.31 Acute candidiasis of vulva and vagina
CPT/HCPCS: 87086; 87480; 87510; 87660

== ENCOUNTER → 2024-02-07 13:24 | Outpatient (CLI) | payer MEDICARE, MEDICAID, SELFPAY ==
--- NOTE | 2024-02-07 13:26 | DI.MG.S_ITS ---
BILATERAL DIGITAL SCREENING MAMMOGRAM 3D/2D WITH CAD: 02/07/2024 CLINICAL: Routine screening. Comparison is made to exams dated: 06/27/2022 mammogram, 10/23/2019 mammogram, and 07/28/2017 mammogram - [facility]. There are scattered areas of fibroglandular density (category b / 25%-50% glandular tissue). Current study was also evaluated with a Computer Aided Detection (CAD) system. No significant masses, calcifications, or other findings are seen in either breast. There has been no significant interval change. IMPRESSION: NEGATIVE There is no mammographic evidence of malignancy. A 1 year screening mammogram is recommended. Based on the Tyrer Cuzick model (a risk assessment model) the patient's lifetime risk is 7.1% and her 10 year risk is 1.6%. According to the ACR, ACS, and NCCN guidelines, an annual breast MRI exam along with mammogram is recommended if the patient's lifetime risk is 20% or greater. This exam was interpreted at Station ID: [id number]. NOTE: For mammograms, a report in lay terms will be sent to the patient. Approximately 15% of breast malignancies will not be visualized mammographically. In the management of a palpable breast mass, a negative mammogram must not discourage biopsy of a clinically suspicious lesion. Electronically Signed By: Uday fotser/dmitriy:02/07/2024 15:10:25 letter sent: Normal Exam ACR BI-RADS Category 1: Negative
== END ==
PROVIDERS: Family Provider Family Medicine; PCP Family Medicine; Referring Provider Family Medicine; Visit Provider Family Medicine
DX: Z12.31 Encounter for screening mammogram for malignant neoplasm of breast (principal)
CPT/HCPCS: 77063; 77067

== ENCOUNTER → 2024-11-19 11:10 | Outpatient (CLI) | payer MEDICARE, MEDICAID, SELFPAY ==
--- NOTE | 2024-11-19 11:15 | DI.MRI.S_ITS ---
PROCEDURE: MR LUMBAR SPINE WO/W CON INDICATIONS: spondylolysis TECHNIQUE: Noncontrast sagittal T1 spin echo and T2 fast spin echo, sagittal STIR, axial T1 and T2 fast spin echo through the lumbar spine. In cases with scoliosis, additional coronal T2 fast spin echo may be performed. After the administration of contrast, sagittal and axial T1 spin echo with fat saturation through the lumbar spine. COMPARISON: [facility], MR, MR THORACIC SPINE WITHOUT CONTRAST, 11/20/2023, 11:31. FINDINGS: Image quality: Excellent Mild dextroscoliosis, centered at the thoracolumbar junction. Grade 1 anterolisthesis of L4 on L5. Vertebral body height of the lumbar spine are well maintained. Scattered vertebral hemangiomas. Mild fibrovascular end plate change at L4-5. Multilevel disc bulge and disc desiccation. Conus terminates at the level of L1-2, and is unremarkable. Right neural foraminal stenosis: None. Left neural foraminal stenosis: Mild at L2-3, and L3-4. Axial images: T12-L1: Mild bilateral facet arthropathy. No central canal stenosis. L1-2: Mild bilateral facet arthropathy. No central canal stenosis. L2-3: Mild bilateral facet arthropathy. Mild disc bulge. No central canal stenosis. L3-4: Severe right, mild left facet arthropathy. Mild disc bulge. No central canal stenosis. L4-5: Posterior disc uncovering. Severe bilateral facet arthropathy. No central canal stenosis L5-S1: Moderate right, severe left facet arthropathy. No central canal stenosis. Visualized sacrum is intact. No abdominal aortic aneurysm. Right renal cyst. Small left renal cyst. IMPRESSION: 1. Mild dextroscoliosis at the thoracolumbar junction. 2. Mild left neural foraminal stenosis at L2-3 and L3-4. Dictated by: Re Adame M.D. on 11/19/2024 at 14:10 Approved by: Re Adame M.D. on 11/19/2024 at 14:24
== END ==
LOC: MRI 11:11
PROVIDERS: Family Provider Family Medicine; PCP Family Medicine; Referring Provider Specialist/Technologist Athletic Trainer; Visit Provider Specialist/Technologist Athletic Trainer
DX: M43.16 Spondylolisthesis, lumbar region (principal); M47.816 Spondylosis without myelopathy or radiculopathy, lumbar region; M48.061 Spinal stenosis, lumbar region without neurogenic claudication; M51.369 Other intervertebral disc degeneration, lumbar region without mention of lumbar back pain or lower extremity pain; D18.09 Hemangioma of other sites; N28.1 Cyst of kidney, acquired; M41.9 Scoliosis, unspecified
CPT/HCPCS: 72158; A9579